=== PATIENT | male | born 1965 | race Caucasian/White ===

== ENCOUNTER → 2019-03-16 | Outpatient (CLI) | payer OTHER ==
[~2019-03-16] VITALS: Ht 190.5 cm; Wt 87.5 kg
[~2019-03-16] MED LIST: FLEXERIL PO; NABUMETONE 500500 M1 PO; PREMARIN25 MG IM; TESTOSTERO200 MG/1 M IM
[2019-03-16 14:12] VITALS: BP 132/80
--- NOTE | 2019-03-16 14:50 | NUR ---
Pain Clinic Assessment: 1. History of Osteoarthritis: Not Applicable History of Rheumatoid Arthritis: Not Applicable 2. Height: 6 ft. 3 in. 190.5 cm. Weight: 193.0 lb. oz. 87.544 kg. Patient's BMI: 24.1 3. Vital Signs: BP: 132/80 Pulse: 83 Resp: 14 Temp: 02 Sat: 98 ECG Mon: 4. Pain Intensity: 2 5. Fall Risk: Dizziness: N Needs help standing or walking: N Fallen in the last 3 months: N Fall risk comments: 6. Patient on Blood Thinner: None 7. History of Hypertension: N 8. Opioid Therapy greater than 6 weeks: N Opiate Contract Signed: 9. Risk Assessment Tool Provided: 10. Functional Assessment Tool: 11. Recreational Drug Use: Never Drug Type: Tobacco Use: Never Smoker Tobacco Type: Amount or Packs/day: How Many Years: Alcohol Use: Yes Frequency: Weekly Quant: 2-3
--- NOTE | 2019-03-22 12:14 | HPC ---
[facility] [address] [address] PAIN MANAGEMENT CONSULTATION Name: DAMION MENDEZ Room #: REG [facility] MJules.#: [id number] Admission: 03/16/19 Attend Phys: Asim Cunningham DO Discharge: Date of : 69 Report #: [id number] THIS REPORT FOR: //name// CC: Heather MORROW Physician staff DATE OF SERVICE: 03/16/2019 CHIEF COMPLAINT: Low back pain, left lower extremity pain with paresthesias. HISTORY OF PRESENT ILLNESS: As you know, the patient is a very pleasant 54-year-old male who reports acute onset of low back pain, left lower extremity pain with paresthesias began 01/14/2019. The patient denies any specific injury or trauma that may have led to symptoms occurrence. He trialed dyff-gpp-rqhtlzd medications, rest, and relaxation, but did not note improvement. He sought evaluation through his primary care physician who gave him physician-directed physical therapy for home as the patient is a very physically fit individual, who frequents his gym on a consistent basis. It was felt that he could do his exercises at home and he has been doing so. He unfortunately did not note improvement in symptoms and the pain continued. He has trialled whap-efp-zteabwc nonsteroidal anti-inflammatories with some benefit, but unfortunately it is only transient. He has tried CBD oil applied to the area, which has given him some benefit, but again only transient in nature. He sought evaluation through his primary care physician who referred the patient over for evaluation from a Neurosurgery standpoint. The patient saw Dr. Heather Rutledge on 03/08/2019 where he was evaluated for suspected lumbar radiculopathy. The patient at that visit was advised of the findings of his imaging study showed moderately severe left lateral recess stenosis due to a synovial cyst at the L4-L5 level. He was advised of the treatment options and was subsequently sent to our clinic to discuss conservative treatments initially before surgical options are entertained. The patient indicates today pain is periodic, describes the pain as shooting and aching, places current pain score 3/10, daily average of 3/10, worst pain being was 10/10. The patient states that walking and working out exacerbate symptoms, sitting and lying down as well as the uses of nonsteroidal anti-inflammatories were beneficial for pain control. He has been referred to our service to discuss treatment options for suspected lumbar radiculopathy secondary to the findings at the L4-L5 level. PAST SURGICAL HISTORY: 1. Tonsillectomy, adenoidectomy. 2. Right ACL repair. 3. Vasectomy. [address] [address] PAIN MANAGEMENT CONSULTATION Name: DAMION MENDEZ Room #: REG TRACY Manzano#: [id number] Admission: 03/16/19 Attend Phys: Asim Cunningham DO Discharge: Date of : 69 Report #: [id number] SOCIAL HISTORY: The patient denies tobacco, IV or illicit drug use. He admits to occasional an alcohol beverage. He exercises 5 days a week with cardiovascular and a weight lifting. He is , but unaccompanied at today's visit. He is currently employed. He is working, not receiving workmen's compensation nor is he trying to obtain disability benefits. He is not in litigation in regards to pain. REVIEW OF SYSTEMS: Positive for weight change, decrease in appetite, fatigue and weakness, loss of appetite, frequent urination, intermittent, nocturia, numbness and tingling sensations. All other review of systems negative per 12-point review of systems other than those listed in history of present illness. Pain impact score 43/70 indicating moderate interference of daily activities secondary to pain. ALLERGIES: NO KNOWN DRUG ALLERGIES. CURRENT MEDICATIONS: Testosterone 200 mg intramuscular every 7 days, estrogen conjugates 25 mg twice a week, Flexeril 10 mg t.i.d. p.r.n., ketaconazole 200 mg 2 tabs once a day, dicyclomine 100 mg once a day. IMAGING: MRI of the lumbar spine obtained on 02/03/2019 shows slight retrolisthesis of L5 on S1. There is narrowing noted with moderate facet degenerative changes, reactive marrow changes noted with mild bulging of the disks, but no significant central canal neural foraminal stenosis. L4-L5 shows moderate bulging noted without central canal stenosis. There are moderate facet degenerative changes. There is elongated synovial cyst that measures 1.2 x 0.2 cm transversely and 2.5 cm vertically on the left side. This causes mass effect upon the lateral recess, causing impingement of the nerve at the level. L3-L4 is unremarkable, L2-L3 is unremarkable, L1-L2 unremarkable. PHYSICAL EXAMINATION: VITAL SIGNS: Blood pressure 132/80, pulse 83, respiratory rate 14 and unlabored. The patient is 98% on room air, height 6 feet 3 inches tall, weight 193 pounds, BMI calculated 24.1. GENERAL: Well-developed, well-nourished, well-hydrated 54-year-old male appearing stated age, pain is rated around 2/10. HEENT: Normocephalic, atraumatic. Pupils equal, round, reactive to light. Extraocular muscles are intact. Sclerae nonicteric without injection. NEUROLOGIC: Cranial nerves 2 through 12 grossly intact. Speech is fluent. The patient deemed an excellent historian. LUNGS: Clear, no wheeze, rhonchi or rales. CARDIOVASCULAR: Regular. No appreciable gallop, no rub. ABDOMEN: Soft, nontender, nondistended, normoactive bowel sounds. [facility] [address] [place] [address] PAIN MANAGEMENT CONSULTATION Name: DAMION MENDEZ Room #: REG [facility]..#: [id number] Admission: 03/16/19 Attend Phys: Asim Cunningham DO Discharge: Date of : 69 Report #: [id number] EXTREMITIES: Show no clubbing, no cyanosis, and no edema. MUSCULOSKELETAL: Lower extremity strength appears symmetrical 5/5, intact to light touch from L1 through S2 dermatomes. Seated straight leg raising negative. Supine straight leg raising is positive on the left. Albert's test negative. Modified Gaenslen's positive for axial low back pain. Ankle clonus negative. Babinski is negative. Deep tendon reflexes 2+/4 at patella and Achilles. Lumbar provocation testing is met with slight increase in overall pain with extension and rotation to the left. ASSESSMENT: 1. Symptomatic lumbar radiculopathy. 2. 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 3. Synovial cyst of the central canal. 4. Intractable pain. PLAN: 1. Based on today's physical exam and history the patient has provided, the description the patient uses in regards to pain as well as the location of symptoms and the findings of his MRI, likely source of the patient's pain is lumbar radiculopathy. The patient has sought evaluation through Neurosurgery with Dr. Heather Rutledge, who sent the patient to our clinic to discuss conservative treatment options for lumbar radiculopathy secondary to the findings at the L4-L5 level involving the synovial cyst within the left lateral recess. We have discussed today with the patient the findings of his MRI, so he has a full understanding of the MRI findings. After that discussion, we then discussed the treatment options available based on the findings therein and the physical exam. The following was discussed with the patient today. We discussed physical therapy, stretching exercises, core strengthening as a treatment course. We discussed medication management utilizing anti-inflammatories on a consistent basis. This could be supplemented with CBD oil, which has shown some benefit with patients with back issues. We discussed acupuncture and chiropractic manipulation as a possible treatment course, though they would have to be limited in their scope of treatment due to the synovial cyst positioning. We discussed lumbar epidural injections, for which the patient was referred to our clinic. We also discussed the possibility of undergoing CT-guided fenestration of the cystic mass, reducing the effects within the lateral recess and ultimately, we discussed surgical options. After reviewing the risks and benefits of all proposed treatment options, the patient chose to move forward with a lumbar epidural injection. 2. The patient was advised to do the third libertarian payer restrictions, authorization had to be obtained before the patient could undergo a lumbar epidural injection. We will begin this authorization process immediately. Once we have this authorization completed, we will contact the patient and have him return as quickly as possible to undergo the procedure. I have advised the patient I will make myself available, so that when that authorization is [address] [address] PAIN MANAGEMENT CONSULTATION Name: DAMION MENDEZ Room #: REG TRACY Manzano#: [id number] Admission: 03/16/19 Attend Phys: Asim Cunningham DO Discharge: Date of : 69 Report #: [id number] obtained, we will have him return as quickly as possible to undergo the procedure. 3. I have provided the patient with a prescription of nabumetone 500 mg dose. This will provide some analgesic benefit and improvement in inflammatory processes. He was given #90 tablets, advised to watch for side effects of dyspepsia, worsening of blood pressure and lower extremity edema with its use. He can initiate this therapy at his earliest convenience. He is to discontinue all other nonsteroidal anti-inflammatories in favor of this medication. If the patient has any side effects to medication, he is to contact our clinic. 4. We did discuss with the patient that if the epidural injection is not beneficial, a possible fenestration under CT guidance with Interventional Radiology would be recommended. This would alleviate the pressure of the synovial cyst on the lateral recess and potentially improve pain for an extended period of time. We will discuss this at followup visit after the patient has undergone the first in a series of requested epidural injections. 5. We wish to thank Dr. Heather Rutledge for the referral of this patient to our clinic. We will keep you apprised of this patient's progress in treating his ongoing pain secondary to the findings at the L4-L5 level. Again, we wish to thank you for the opportunity to see this patient in consultation. <ELECTRONICALLY SIGNED> By: Asim Cunningham DO 03/22/19 1214 [id number] Asim Cunningham DO /nt
== END ==
LOC: PAIN 10:58
DX: M54.16 Radiculopathy, lumbar region (principal); M48.061 Spinal stenosis, lumbar region without neurogenic claudication; G89.4 Chronic pain syndrome

== ENCOUNTER → 2019-03-23 | Outpatient (CLI) | payer OTHER ==
[~2019-03-23] VITALS: Ht 190.5 cm; Wt 87.5 kg
[2019-03-23 13:35] VITALS: BP 135/90
--- NOTE | 2019-03-23 13:57 | NUR ---
Pain Clinic Assessment: 1. History of Osteoarthritis: Not Applicable History of Rheumatoid Arthritis: Not Applicable 2. Height: 6 ft. 3 in. 190.5 cm. Weight: 193.0 lb. oz. 87.544 kg. Patient's BMI: 24.1 3. Vital Signs: BP: 135/90 Pulse: 69 Resp: 16 Temp: 02 Sat: 97 ECG Mon: 4. Pain Intensity: 3 5. Fall Risk: Dizziness: N Needs help standing or walking: N Fallen in the last 3 months: N Fall risk comments: 6. Patient on Blood Thinner: None 7. History of Hypertension: N 8. Opioid Therapy greater than 6 weeks: N Opiate Contract Signed: 9. Risk Assessment Tool Provided: 10. Functional Assessment Tool: 11. Recreational Drug Use: Never Drug Type: Tobacco Use: Never Smoker Tobacco Type: Amount or Packs/day: How Many Years: Alcohol Use: Yes Frequency: Weekly Quant: 2-3
--- NOTE | 2019-04-04 10:05 | HPC ---
[address] [address] PAIN MANAGEMENT CONSULTATION Name: DAMION MENDEZ Room #: REG [facility]..#: [id number] Admission: 03/23/19 Attend Phys: Asim Cunningham DO Discharge: Date of : 69 Report #: [id number] THIS REPORT FOR: //name// CC: Heather [facility]OR[facility]AN [facility] Physician staff DATE OF SERVICE: 03/23/2019 REFERRING PHYSICIAN: Heather Rutledge MD CHIEF COMPLAINT: Low back pain, left lower extremity pain and paresthesias. HISTORY OF PRESENT ILLNESS: As you know, the patient is a very pleasant 54-year-old male who returns today in followup visit to undergo first in a series of lumbar epidural injections. We have received authorization for the patient to undergo the procedure. As you are aware, the patient reported acute onset of low back pain, left lower extremity pain that began 01/14/2019. He sought evaluation through his primary care who referred the patient over to Neurosurgery. They evaluated the patient and recommended conservative treatment initially to determine if his symptoms would be amenable. He was seen in consultation 03/16/2019 and provided today's appointment to undergo a lumbar epidural injection as we had required authorization time to be able to gain this approval. He returns today with preapproval to undergo a lumbar epidural injection under fluoroscopic guidance. He is placing his pain today at 3/10. ALLERGIES: No known drug allergies. CURRENT MEDICATIONS: Testosterone, estrogen, Flexeril, ketaconazole, dicyclomine. SOCIAL HISTORY: The patient denies tobacco, IV or illicit drug use. Admits occasional alcohol beverage. He exercises 5 times a week, both with cardiovascular and weight lifting. He is . Unaccompanied today. IMAGING: No new imaging available. PHYSICAL EXAMINATION: VITAL SIGNS: Blood pressure 135/90, pulse 69, respiratory rate 16 and unlabored. The patient is 97% on room air, height 6 feet 3 inches tall, weight 193 pounds, BMI calculated 24.1. GENERAL: Well-developed, well-nourished, well-hydrated 54-year-old male appearing stated age, pain is rated today at 3/10. HEENT: Normocephalic, atraumatic. Pupils equal, round, reactive to light. EXTREMITIES: Show no clubbing, no cyanosis, and no edema. [facility] [address] [place] [address] PAIN MANAGEMENT CONSULTATION Name: DAMION MENDEZ Room #: REG MANJULAAlan Manzano#: [id number] Admission: 03/23/19 Attend Phys: Asim Cunningham DO Discharge: Date of : 69 Report #: [id number] MUSCULOSKELETAL: Lower extremity strength remains symmetrical today, 5/5. Seated straight leg raising negative. Supine straight leg raising positive on the left. Albert's test negative. Modified Gaenslen's positive for some axial low back pain. He is intact to light touch from L1 through S2 dermatomes. ASSESSMENT: 1. Symptomatic lumbar radiculopathy. 2. Lateral recess stenosis of lumbar spine. 3. Synovial cyst of the central canal. 4. Chronic intractable pain. PLAN: 1. The patient returns today in followup visit having received preauthorization to undergo the first in a series of lumbar epidural injections under fluoroscopic guidance. We have advised the patient of the risks and benefits of this procedure. These risks include but are not necessarily limited to bleeding, bruising, infection, worsening pain, no relief of pain, also risk of temporary or permanent muscle weakness, temporary or permanent nerve damage, possible paralysis, post-dural puncture headache and . The patient states understood and wished to proceed. 2. No medication changes made at today's visit. The patient will continue current medical therapy as prior prescribed. 3. We will see the patient back in followup visit on an as needed basis for possible next in the series of epidural injections. PROCEDURE NOTE DESCRIPTION OF PROCEDURE: L5-S1 left paramedian epidural steroid injection under fluoroscopic guidance. This is the first procedure of the first series that the patient is undergoing. After obtaining written consent, the patient was taken back to the fluoroscopy suite, placed in a prone position with pillow under the abdomen to decrease lumbar lordosis. The skin overlying the lumbosacral area was then prepped and draped in aseptic fashion. The L5-S1 vertebral interspace was then identified by AP fluoroscopy. The skin and subcutaneous tissue overlying the target site of injection was anesthetized with 3 mL 1% lidocaine. A 20-guage 3-1/2 inch Tuohy needle was then advanced under fluoroscopic guidance towards the epidural space using a left paramedian approach. The epidural space was identified using loss of resistance to air technique. After negative aspiration for heme or cerebrospinal fluid, a total of 1 mL of Omnipaque was injected. A lumbar epidurogram was confirmed using both AP and lateral fluoroscopy. After negative aspiration for heme or cerebrospinal fluid, 5 mL of a solution containing 2 mL 40 mg per mL, 80 mg total triamcinolone along with [address] [address] PAIN MANAGEMENT CONSULTATION Name: DAMION MENDEZ Room #: REG TRACY Manzano#: [id number] Admission: 03/23/19 Attend Phys: Asim Cunningham DO Discharge: Date of : 69 Report #: [id number] mL of lidocaine in 1% was injected in increments. Contrast spread was noted posterior epidural space. The needle was then retracted approximately half way and needle tract flushed with 1 mL of 1% of lidocaine. Needle was then removed. There were no apparent sensory or motor deficits in the lower extremity following the procedure. A sterile bandage was placed over the injection site. The heart rate, pulse, oximetry and blood pressure were continuously monitored after the procedure. There were no apparent complications. The patient tolerated the procedure well and was carefully escorted to the recovery room in stable condition. There were no apparent complications. After meeting discharge criteria, the patient was then discharged home. <ELECTRONICALLY SIGNED> By: Asim Cunningham DO 04/04/19 1005 [id number] 2020 Asim Cunningham DO /nt
== END | disposition home or self-care (01) ==
LOC: PAIN 07:00
DX: M54.16 Radiculopathy, lumbar region (principal); G89.29 Other chronic pain; M48.061 Spinal stenosis, lumbar region without neurogenic claudication; M71.38 Other bursal cyst, other site; Z98.890 Other specified postprocedural states; Z79.899 Other long term (current) drug therapy